=== PATIENT | female | born 2000 | race Caucasian/White ===

== ENCOUNTER 2019-02-21 22:33 | Emergency (ER) | payer BC ==
[2019-02-21 23:01] LABS: ABS Eosinophils 0.1 10^3/ul (0-0.6); ABS Lymphocytes 1.5 10^3/ul (1.0-4.8); ABS Monocytes 0.6 10^3/ul (0-0.8); ABS Neutrophils 7.1 10^3/ul (1.5-7.7); Eosinophil % 1.3 %; Hematocrit 42 % (35-47); Hemoglobin 14.5 g/dL (12.0-16.0); Lymphocyte % 16.3 %; Mean Corpuscular HGB Conc 34 g/dL (31-36); Mean Corpuscular Hemoglobin 30 pg (27-31); Mean Corpuscular Volume 86 fL (80-97); Platelet Count 233 10^3/uL (150-450); Red Cell Distribution Width 15 % (10-15); White Blood Count 9.4 10^3/uL (3.5-10.8)
[2019-02-21 23:07] LABS: INR 0.96 (0.82-1.09)
[2019-02-21 23:18] LABS: Albumin 4.7 g/dL (3.2-5.2); Albumin/Globulin Ratio 1.6 (1-3); BUN/Creatinine Ratio 11.7 (8-20); Calcium 9.7 mg/dL (8.6-10.3); EGFR African American 116.8 (>60); EGFR Non-African American 96.6 (>60); Potassium 3.9 mmol/L (3.5-5.0); Total Bilirubin 0.4 mg/dL (0.2-1.0); Total Protein 7.7 g/dL (6.4-8.9)
[2019-02-22] MEDS ORDERED: NS 0.9% 1000 ML** 1,000 ML IV ONE (01:49)
[2019-02-22] MEDS ORDERED: Ondansetron INJ* 2 MG/ML VIAL IV ONE (01:49)
[2019-02-22 02:10] LABS: Troponin I 0.01 ng/mL (<0.04)
--- NOTE | 2019-02-22 02:14 | ED ---
Complex/Multi-Sys Presentation - HPI Summary HPI Summary: Patient is a 18 y/o F presenting to [facility] with complaints of epigastric pain, N/ V, fevers, and MEHTA. She states that N/V onset 02/19/19. Epigastric pain onset around 2200/2300 02/21/19. Pain is characterized as sharp. Difficulty breathing is endorsed as well. She denies dysuria and diarrhea. Patient is on Sertaline, but it is reported that she has not taken this medication in four days. Patient had negative strep and influenza at [facility]. LNMP was February 06. Patient endorses alcohol usage and denies tobacco and substance usage. On triage , pain is rated 6/10, nothing is noted to aggravate/alleviate Sx. Home medications and allergies are reviewed. Home Medications Norethindrone-E.estradiol-Iron [Junel Fe 1 mg-20 Mcg Tablet] 1 tab PO DAILY 05/02 [History Confirmed 02/22/19] Sertraline* [Zoloft*] 25 mg PO DAILY 02/22/19 [History Confirmed 02/22/19] - History Of Current Complaint Chief Complaint: EDUpperRespComplaint Time Seen by Provider: 02/22/19 01:48 Hx Obtained From: Patient Onset/Duration: Lasting Hours - epigastric area pain, Lasting Days - N/V, Still Present Timing: Constant, Hours - epigastric area pain, Days - N/V Severity Currently: Moderate - 6/10 Location: Pain At: - epigastric area Character: Sharp Aggravating Factor(s): nothing Alleviating Factor(s): nothing Associated Signs And Symptoms: Positive: Headache, SOB - difficulty breathing, Nausea, Vomiting, Abdominal Pain - epigastric pain, Fever. Negative: Diarrhea, Dysuria - Allergies/Home Medications Allergies/Adverse Reactions: Allergies Allergy/AdvReac Type Severity Reaction Status Date / Time No Known Allergies Allergy Verified 02/21/19 22:44 Home Medications: Home Medications Norethindrone-E.estradiol-Iron [Junel Fe 1 mg-20 Mcg Tablet] 1 tab PO DAILY 05/02 [History Confirmed 02/22/19] Sertraline* [Zoloft*] 25 mg PO DAILY 02/22/19 [History Confirmed 02/22/19] PMH/Surg Hx/FS Hx/Imm Hx Sensory History: Denies: Hx Legally Blind, Hx Deafness Opthamlomology History: Denies: Hx Legally Blind EENT History: Denies: Hx Deafness Psychiatric History: Reports: Hx Depression Infectious Disease History: No Infectious Disease History: Denies: Traveled Outside the [place] in Last 30 Days - Family History Known Family History: Negative: Blood Disorder - Social History Alcohol Use: Occasionally Substance Use Type: Reports: None Smoking Status (MU): Never Smoked Tobacco Review of Systems Positive: Fever Positive: Shortness Of Breath - difficulty breathing Positive: Abdominal Pain - epigastric pain , Vomiting, Nausea. Negative: Diarrhea Negative: dysuria Positive: Headache All Other Systems Reviewed And Are Negative: Yes Physical Exam - Summary Physical Exam Summary: General: Well-developed, thin-appearing female. No acute distress. HEENT: Normocephalic, Atraumatic. Eyes: Conjuctiva normal, PERRL. Ears: TMs within normal limits. Nares: (-) discharge, (-) erythema. Oropharynx: Clear, mucous membranes moist, (-) exudates. Neck: Soft, FROM, (-) lymphadenopathy, (-) thyromegaly, (-) JVD. Cardiovascular: Normal sinus rhythm, (-) murmur. Lungs: Clear to auscultation bilaterally (-) wheezes, (-) rales, (-) rhonchi. Abdomen: Soft, mild epigastric tenderness, non-distended, (-) organomegaly, normal bowel sounds. Back: (-) CVA tenderness Extremities: No edema. Skin: Warm, dry, (-) rash. Neuro: Alert and oriented x3, no focal deficits. Psychiatric: Mood normal, affect normal. Triage Information Reviewed: Yes Vital Signs On Initial Exam: Initial Vitals Temp Pulse Resp BP Pulse Ox 98.2 F 97 18 134/93 99 02/21/19 22:44 02/21/19 22:44 02/21/19 22:44 02/21/19 22:44 02/21/19 22:44 Vital Signs Reviewed: Yes Diagnostics - Vital Signs Vital Signs Temp Pulse Resp BP Pulse Ox 02/21/19 23:05 98.4 F 105 22 118/84 100 02/21/19 22:44 98.2 F 97 18 134/93 99 - Laboratory Lab Results: Lab Results 02/21/19 02/21/19 02/21/19 Range/Units 22:55 22:55 22:55 WBC 9.4 (3.5-10.8) 10^3/uL RBC 4.90 H (3.70-4.87) 10^6 /uL Hgb 14.5 (12.0-16.0) g/dL Hct 42 (35-47) % MCV 86 (80-97) fL MCH 30 (27-31) pg MCHC 34 (31-36) g/dL RDW 15 (10-15) % Plt Count 233 (150-450) 10^3/uL MPV 8.0 (7.4-10.4) fL Neut % (Auto) 76.0 % Lymph % (Auto) 16.3 % Estill % (Auto) 6.0 % Eos % (Auto) 1.3 % Baso % (Auto) 0.4 % Absolute Neuts (auto) 7.1 (1.5-7.7) 10^3/ul Absolute Lymphs (auto) 1.5 (1.0-4.8) 10^3/ul Absolute Monos (auto) 0.6 (0-0.8) 10^3/ul Absolute Eos (auto) 0.1 (0-0.6) 10^3/ul Absolute Basos (auto) 0.0 (0-0.2) 10^3/ul Absolute Nucleated RBC 0.0 10^3/ul Nucleated RBC % 0.0 INR (Anticoag Therapy) 0.96 (0.82-1.09) Sodium 138 (135-145) mmol/L Potassium 3.9 (3.5-5.0) mmol/L Chloride 104 (101-111) mmol/L Carbon Dioxide 27 (22-32) mmol/L Anion Gap 7 (2-11) mmol/L BUN 9 (6-24) mg/dL Creatinine 0.77 (0.51-0.95) mg/dL Est GFR ( Amer) 116.8 (>60) Est GFR (Non-Af Amer) 96.6 (>60) BUN/Creatinine Ratio 11.7 (8-20) Glucose 103 H (70-100) mg/dL Calcium 9.7 (8.6-10.3) mg/dL Total Bilirubin 0.40 (0.2-1.0) mg/dL AST 16 (13-39) U/L ALT 9 (7-52) U/L Alkaline Phosphatase 52 (34-104) U/L Troponin I 0.00 (<0.04) ng/mL Total Protein 7.7 (6.4-8.9) g/dL Albumin 4.7 (3.2-5.2) g/dL Globulin 3.0 (2-4) g/dL Albumin/Globulin Ratio 1.6 (1-3) Beta HCG, Quant 02/22/19 Range/Units 01:33 WBC (3.5-10.8) 10^3/uL RBC (3.70-4.87) 10^6 /uL Hgb (12.0-16.0) g/dL Hct (35-47) % MCV (80-97) fL MCH (27-31) pg MCHC (31-36) g/dL RDW (10-15) % Plt Count (150-450) 10^3/uL MPV (7.4-10.4) fL Neut % (Auto) % Lymph % (Auto) % Estill % (Auto) % Eos % (Auto) % Baso % (Auto) % Absolute Neuts (auto) (1.5-7.7) 10^3/ul Absolute Lymphs (auto) (1.0-4.8) 10^3/ul Absolute Monos (auto) (0-0.8) 10^3/ul Absolute Eos (auto) (0-0.6) 10^3/ul Absolute Basos (auto) (0-0.2) 10^3/ul Absolute Nucleated RBC 10^3/ul Nucleated RBC % INR (Anticoag Therapy) (0.82-1.09) Sodium (135-145) mmol/L Potassium (3.5-5.0) mmol/L Chloride (101-111) mmol/L Carbon Dioxide (22-32) mmol/L Anion Gap (2-11) mmol/L BUN (6-24) mg/dL Creatinine (0.51-0.95) mg/dL Est GFR ( Amer) (>60) Est GFR (Non-Af Amer) (>60) BUN/Creatinine Ratio (8-20) Glucose (70-100) mg/dL Calcium (8.6-10.3) mg/dL Total Bilirubin (0.2-1.0) mg/dL AST (13-39) U/L ALT (7-52) U/L Alkaline Phosphatase (34-104) U/L Troponin I 0.01 (<0.04) ng/mL Total Protein (6.4-8.9) g/dL Albumin (3.2-5.2) g/dL Globulin (2-4) g/dL Albumin/Globulin Ratio (1-3) Beta HCG, Quant Pending Result Diagrams: 02/21/19 22:55 02/21/19 22:55 Lab Statement: Any lab studies that have been ordered have been reviewed, and results considered in the medical decision making process. - Radiology CHEST X-RAY Radiology Interpretation Completed By: ED Physician Summary of Radiographic Findings: CXR showed no infiltrate, no consolidation, no pneumothorax, pending official report. - EKG 2235 Cardiac Rate: NL - rate of 91 BPM EKG Rhythm: Sinus Rhythm Summary of EKG Findings: EKG showed NSR with rate of 91 BPM, no STEMI. This EKG was reviewed and interpreted by ED physician. Re-Evaluation - Re-Evaluation First Eval Re-Evaluation Time: 04:11 Comment: Results of labs and tests were discussed with the patient and parents, patient is discharged to home and will follow up with PCP. Complex Multi-Symp Course/Dx Course Of Treatment: Patient is a 18 y/o F presenting to [facility] with complaints of epigastric pain, N/V, fevers, and MEHTA. She states that N/V onset 02/19/19. Epigastric pain onset around 2200/2300 02/21/19. Pain is characterized as sharp. Difficulty breathing is endorsed as well. She denies dysuria and diarrhea. Patient is on Sertaline, but it is reported that she has not taken this medication in four days. Patient had negative strep and influenza at [facility]. LNMP was February 06. Patient endorses alcohol usage and denies tobacco and substance usage. On physical exam, patient is noted to be thin-appearing with mild epigastric tenderness. EKG showed NSR with rate of 91 BPM, no STEMI. Bloodwork was obtained. Abnormal values include RBC 4.9, glucose 103. First and second trop were negative. Beta HCG was negative. CXR showed no infiltrate, no consolidation, no pneumothorax. Patient was given 1 L NS, protonix 40 mg IV, and Zofran 4 mg IV. She was discharged to home and will follow up with PCP within three days. - Diagnoses Provider Diagnoses: Vomiting Discharge ED - Sign-Out/Discharge Documenting (check all that apply): Patient Departure - discharge Patient Received Moderate/Deep Sedation with Procedure: No - Discharge Plan Condition: Stable Disposition: HOME Patient Education Materials: Acute Nausea and Vomiting (ED) Referrals: [facility] [Outside] - 3 Days Additional Instructions: Please follow up with your primary care physician within three days. Please return to ED for any new or worsening symptoms. - Billing Disposition and Condition Condition: STABLE Disposition: Home - Attestation Statements Document Initiated by Emeritaibe: Yes Documenting Scribe: DARA CALDERÓN Provider For Whom Ryan is Documenting (Include Credential): AIDAN GARCIA MD Scribe Attestation: DARA Lemus, scribed for AIDAN GARCIA MD on 02/22/19 at 0507. Scribe Documentation Reviewed: Yes Provider Attestation: The documentation as recorded by the DARA quinones accurately reflects the service I personally performed and the decisions made by me, AIDAN GARCIA MD Status of Scribe Document: Viewed
[2019-02-22 02:22] LABS: HCG Pregnancy 0.75 mIU/mL
[2019-02-22] MEDS ORDERED: Pantoprazole IV* 40 MG IV ONE (02:28)
[2019-02-22 04:13] VITALS: BP 115/74
== END 2019-02-22 03:41 | disposition home or self-care (01) ==
LOC: ED 22:33
DX: R11.2 Nausea with vomiting, unspecified (principal); R10.13 Epigastric pain; R51 Headache; Z79.899 Other long term (current) drug therapy; F32.9 Major depressive disorder, single episode, unspecified; R06.02 Shortness of breath
CPT/HCPCS: 36415; 71045; 80053; 84484; 84702; 85025; 85610; 93005; 96361; 96374; 96375; 99283; J2405